=== PATIENT | male | born 1990 | race Caucasian/White ===

== ENCOUNTER 2021-01-02 15:51 | Inpatient (IN) | payer OTHER ==
[2021-01-02 16:34] VITALS: BMI 19.2
[2021-01-02] MEDS ORDERED: MAG HYDROX/AL HYDROX/SIMETH 30 ML UNIT-DOSE CUP PO PRN (18:11)
[2021-01-02] MEDS ORDERED: MAGNESIUM HYDROX 2400MG/30ML ORAL SUSPENSION 30 ML CUP PO PRN (18:11)
[2021-01-02] MEDS ORDERED: MENTHOL/PHENOL 1 EACH UD MM PRN (18:11)
[2021-01-02] MEDS ORDERED: MAGNESIUM CITRATE 300 ML BOTTLE PO PRN (18:11)
[2021-01-02] MEDS ORDERED: METHOCARBAMOL 500 MG TABLET PO PRN (18:11)
[2021-01-02] MEDS ORDERED: diazePAM 5 MG TABLET PO PRN (18:11)
[2021-01-02] MEDS ORDERED: BISMUTH SUBSALICYLATE 524 MG/30 ML PO PRN (18:11)
[2021-01-02] MEDS ORDERED: ACETAMINOPHEN 325 MG TABLET (FP) PO PRN ×2 (18:11)
[2021-01-02] MEDS ORDERED: IBUPROFEN 400 MG TABLET (FP) PO PRN (18:11)
[2021-01-02] MEDS ORDERED: ONDANSETRON *ODT* 4 MG TABLET SL PRN (18:11)
[2021-01-02] MEDS ORDERED: diazePAM 5 MG TABLET PO ONE (18:30)
[2021-01-02] MEDS: MELATONIN 5 MG TABLETS PO SCH (22:30)
[2021-01-02] MEDS: THIAMINE HCL 100 MG TABLET (FP) PO SCH (22:30)
[2021-01-02] MEDS: diazePAM 5 MG TABLET PO SCH (22:30)
[2021-01-03] MEDS: diazePAM 5 MG TABLET PO SCH ×4 (05:56→22:08)
[2021-01-03 09:49] LABS: HEMATOCRIT 42.2 % (35.4-49); HEMOGLOBIN 13.8 GM/dL (11.7-16.9); MCH 30.8 pg (25.7-33.7); MCHC 32.6 g/dl (32.0-35.9); MEAN CELL VOLUME 94.3 fl (80-96); MEAN PLT VOLUME 10.2 fl (7.5-11.1); PLATELET COUNT 120 K/MM3 (134-434); RBC 4.48 M/mm3 (4.00-5.60); RDW 12.8 % (11.9-15.9); WHITE BLOOD COUNT 4.3 K/mm3 (4.0-10.0)
[2021-01-03 10:00] LABS: CALCIUM 8.9 mg/dL (8.5-10.1)
[2021-01-03 10:01] LABS: ALBUMIN 3.8 g/dl (3.4-5.0); BLOOD UREA NITROGEN 15.8 mg/dL (7-18)
[2021-01-03 10:04] LABS: CREATININE 0.6 mg/dL (0.55-1.3)
[2021-01-03 10:05] LABS: BILIRUBIN,TOTAL 0.6 mg/dL (0.2-1); TOT PROT 7.4 g/dl (6.4-8.2)
[2021-01-03] MEDS: NICOTINE 21 MG/24 HOURS TOPICAL PATCH TD SCH (10:41)
[2021-01-03] MEDS: PRENATAL VITAMINS W/ FOLIC ACID TABLET (FP) PO SCH (10:41)
[2021-01-03] MEDS: THIAMINE HCL 100 MG TABLET (FP) PO SCH (22:10)
[2021-01-03] MEDS: MELATONIN 5 MG TABLETS PO SCH (22:10)
[2021-01-04] MEDS ORDERED: diazePAM 5 MG TABLET PO SCH (06:00)
[2021-01-04] MEDS: PRENATAL VITAMINS W/ FOLIC ACID TABLET (FP) PO SCH (10:14)
[2021-01-04] MEDS: NICOTINE 21 MG/24 HOURS TOPICAL PATCH TD SCH (10:14)
[2021-01-04] MEDS: hydrOXYzine PAMOATE 50 MG CAPSULE (FP) PO PRN ×2 (10:15→22:23)
[2021-01-04] MEDS ORDERED: LORazepam 1 MG TABLET PO PRN (10:56)
[2021-01-04] MEDS: LORazepam 0.5 MG TABLET PO SCH ×2 (13:12→22:24)
[2021-01-04] MEDS: LORazepam 0.5 MG TABLET PO PRN (19:48)
[2021-01-04] MEDS: NICOTINE POLACRILEX 4 MG GUM BUC PRN (20:50)
[2021-01-04] MEDS ORDERED: GABAPENTIN 100 MG CAPSULE PO ONE (22:00)
[2021-01-04] MEDS: MELATONIN 5 MG TABLETS PO SCH (22:22)
[2021-01-04] MEDS: THIAMINE HCL 100 MG TABLET (FP) PO SCH (22:22)
[2021-01-05] MEDS: LORazepam 0.5 MG TABLET PO SCH ×2 (05:54→10:10)
[2021-01-05] MEDS ORDERED: diazePAM 5 MG TABLET PO SCH (06:00)
[2021-01-05] MEDS ORDERED: LOPERAMIDE HCL 2 MG CAPSULE PO ONE (09:26)
[2021-01-05] MEDS: PRENATAL VITAMINS W/ FOLIC ACID TABLET (FP) PO SCH (10:10)
[2021-01-05] MEDS: NICOTINE POLACRILEX 4 MG GUM BUC PRN ×4 (10:11→21:05)
[2021-01-05] MEDS: NICOTINE 21 MG/24 HOURS TOPICAL PATCH TD SCH (10:11)
[2021-01-05] MEDS: hydrOXYzine PAMOATE 50 MG CAPSULE (FP) PO PRN ×2 (15:04→22:04)
[2021-01-05] MEDS: MELATONIN 5 MG TABLETS PO SCH (22:03)
[2021-01-05] MEDS: THIAMINE HCL 100 MG TABLET (FP) PO SCH (22:04)
[2021-01-05] MEDS: LORazepam 0.5 MG TABLET PO PRN (22:06)
[2021-01-06] MEDS ORDERED: diazePAM 5 MG TABLET PO ONE (06:00)
[2021-01-06 09:30] VITALS: BP 116/76; PULSE 73; TEMP 98.2
[2021-01-06] MEDS: NICOTINE 21 MG/24 HOURS TOPICAL PATCH TD SCH (09:50)
[2021-01-06] MEDS: PRENATAL VITAMINS W/ FOLIC ACID TABLET (FP) PO SCH (09:50)
[2021-01-06] MEDS ORDERED: LORazepam 0.5 MG TABLET PO ONE (10:00)
== END 2021-01-06 09:44 | disposition home or self-care (01) | DRG 775 ==
LOC: YASAS 15:51 → Y6N 18:35
PROVIDERS: ADMIT Allergy & Immunology; ATTEND Allergy & Immunology
PROC: HZ2ZZZZ Detoxification Services for Substance Abuse Treatment (ICD-10-PCS; principal; 2021-01-02)
DX: F10.230 Alcohol dependence with withdrawal, uncomplicated (principal); F12.20 Cannabis dependence, uncomplicated; F17.210 Nicotine dependence, cigarettes, uncomplicated; R74.01 Elevation of levels of liver transaminase levels
CPT/HCPCS: 36415; 80053; 85027; 86780; C9803; U0003; U0005